=== PATIENT | male | born 1990 | race Caucasian/White ===

== ENCOUNTER → 2018-07-21 | Day surgery (SDC) | payer BC ==
[~2018-07-21] MED LIST: AMOXICILLIN; CLARITHROMYCIN; FENTANYL CITRATE/PF 100MCG/2 ML INJ ONE; LIDOCAINE HCL 2% LOCAL INJ 5 ML SDV VIAL INJ ONE; MIDAZOLAM HCL 2 MG/2 ML VIAL ONE; PROPOFOL IV EMULSION 10 MG/ML 50 ML VIAL ONE
[2018-07-21 08:09] VITALS: BP 100/50
[2018-07-21 08:25] VITALS: BP 111/71
[2018-07-21 08:40] VITALS: BP 106/75
[2018-07-21 08:55] VITALS: BP 109/66
[2018-07-21 09:10] VITALS: BP 118/67
--- NOTE | 2018-07-21 15:23 | Operative Report ---
DATE OF PROCEDURE: 07/21/2018 SURGEON: Devante Urias MD INDICATIONS FOR EGD: Heartburn, nausea, and vomiting. MEDICATIONS: The patient was done under MAC. Please see anesthesiologist's note. PROCEDURE IN DETAIL: With the patient in left lateral decubitus position, a flexible fiberoptic Olympus gastroscope was introduced into the esophagus under direct visualization without any difficulty. There was some patchy erythema noted in distal esophagus. The scope was then advanced with ease into the stomach. Mucosa overlying the antrum and the body revealed some patchy erythema and moderate edema and biopsies were obtained, sent to stain for H pylori. Pylorus was of normal contour and shape was intubated with ease and the scope was advanced all the way to the second portion of the duodenum. The scope was then withdrawn slowly and biopsies were obtained from the proximal second portion and the duodenal bulb to rule out sprue. The scope was then withdrawn back into the stomach and retroflexed and mucosa overlying the fundus and cardia appeared to be within normal limits. The scope was then straightened out, it was subsequently withdrawn. Patient tolerated procedure well. IMPRESSION: 1. Distal esophagitis. 2. Gastritis, biopsied. Biopsies sent to stain for H pylori. 3. Rule out sprue. PLAN: Follow up histology. Initiate Protonix 40 mg one p.o. q.a.m. a.c. Devante Urias MD [facility] [place]/[facility] /[id number] cc: Adrian Ricci MD
--- OUTSIDE RECORDS SUMMARY | 2018-07-23 10:29 | XMS REPORT ---
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
--- OUTSIDE RECORDS SUMMARY | 2018-07-23 10:29 | XMS REPORT ---
Author Author Adrian Ricci Organization [employer] Address Unknown Phone Unavailable Care Team Providers Care Fixer Boarding Room Name Role Phone Adrian Ricci CP Unavailable Allergies, Adverse Reactions, Alerts Substance Reaction Event Type N.K.D.A. Info Not Available Non Drug Allergy Problems Problem Type Condition Code Onset Dates Condition Status Problem Gastroesophageal reflux disease, esophagitis presence not specified K21.9 Active Problem Hx of melanoma of skin Z85.820 Active Assessment Hx of melanoma of skin Z85.820 Active Assessment H. pylori infection A04.8 Active Assessment Gastroesophageal reflux disease, esophagitis presence not specified K21.9 Active Medications Medication Code System Code Instructions Start Date End Date Status Dosage Prevpac [facility] 65573627725 - Orally as directed June 05, 2018 Inactive as directed Omeprazole [facility] 11619589458 40 mg Orally Once a day June 06, 2018 Active 1 capsule Bismuth Subsalicylate [facility] [address]-72 262 MG Orally Four times a day June 06, 2018 June 16, 2018 Active 2 tablets as needed Metronidazole [facility] 51504122590 250 MG PO four times a day (qid) June 06, 2018 June 16, 2018 Active 2 tablets Tetracycline HCl ND 67611073989 500 mg PO four times a day (qid) June 06, 2018 June 16, 2018 Active as directed Protonix [facility] 28382438162 40 mg Orally Once a day Apr 09, 2018 Active 1 tablet Vital Signs Date/Time: June 05, 2018 BMI 21.92 Index Weight 140 lbs Height 67 in Cardiac Monitoring Heart Rate 72 /min Blood Pressure Diastolic 64 mm Hg Blood Pressure Systolic 122 mm Hg Results No Known Results Summary Purpose [employer] Submission
--- OUTSIDE RECORDS SUMMARY | 2018-07-23 10:29 | XMS REPORT ---
Author Author Adrian Ricci Organization [employer] Address Unknown Phone Unavailable Care Team Providers Care Hydrologic Engineer Name Role Phone Adrian Ricci CP Unavailable Allergies No Known Allergies Problems Problem Type Condition Code Onset Dates Condition Status Problem Gastroesophageal reflux disease, esophagitis presence not specified K21.9 Active Problem Hx of melanoma of skin Z85.820 Active Medications No Known Medications Results No Known Results Summary Purpose [employer] Submission
== END | disposition home or self-care (01) ==
LOC: OR 06:30
PROVIDERS: ATTEND Internal Medicine Gastroenterology
DX: K29.70 Gastritis, unspecified, without bleeding (principal); K20.9 Esophagitis, unspecified; K21.9 Gastro-esophageal reflux disease without esophagitis; K31.89 Other diseases of stomach and duodenum; A04.8 Other specified bacterial intestinal infections; Z85.820 Personal history of malignant melanoma of skin
CPT/HCPCS: 43239; J2001; J2250; J2704